=== PATIENT | female | born 1955 ===

== ENCOUNTER 2017-09-05 06:46 | Observation (INO) | payer MEDICAID ==
[2017-08-28 08:46] VITALS: BMI 27.3
[2017-09-05] MEDS ORDERED: ceFAZolin IV 1 gm in Dextrose 1 GM/50 ML BAG IVPB ONE (12:33)
[2017-09-05] MEDS ORDERED: Midazolam 2 MG/2 ML VIAL ONE (12:52)
[2017-09-05] MEDS ORDERED: Propofol 10 mg/ml Inj (20 ML) ONE (12:52)
[2017-09-05] MEDS ORDERED: Succinylcholine Chloride 20 mg/ml Syr (5 ml) IV ONE (13:00)
[2017-09-05] MEDS ORDERED: Rocuronium 10 mg/ml (5 ml) ONE (13:00)
[2017-09-05] MEDS ORDERED: Lactated Ringer's 1,000 ML IV ONE ×2 (13:00→14:25)
[2017-09-05] MEDS ORDERED: Neostigmine Methylsulfate 3mg/3ml Syringe IV ONE (14:47)
[2017-09-05] MEDS: HYDROmorphone 0.5 mg/0.5 ml ISec IVP PRN ×3 (15:13→16:12)
--- NOTE | 2017-09-05 15:14 | PCM.SURG1 ---
Surgeon's Initial Post Op Note - Surgeon's Notes Surgeon: Dr. Jordan Address Change Clerk: PGY4, Be PGY1, Ramon RORDIGUEZ Type of Anesthesia: General Endo Pre-Operative Diagnosis: Breast CA Operative Findings: see operative report Post-Operative Diagnosis: Breast CA Operation Performed: Mastectomy with SLNB Specimen/Specimens Removed: Breast tissue, skin, areola complex, and SLN Estimated Blood Loss: EBL {In ML}: 100 Blood Products Given: N/A Drains Used: Kaiden (19 Fr) Post-Op Condition: Good Date of Surgery/Procedure: 09/05/17 Time of Surgery/Procedure: 01:15
--- NOTE | 2017-09-05 16:07 | NM ---
HISTORY: Initial cancer in 2008 treated with right lumpectomy and radiation. COMPARISON: None TECHNIQUE: For separate injections -totaling - 1.0 mCi of 99m Tc filtered sulfur colloid (total volume of 10 ml) were administered into the right periareolar subdermal locations 12, 3, 6 and 9 o'clock positions. Anterior and oblique projection images of the chest/ axilla were subsequently obtained. FINDINGS: Confirmation of the 4 sites of injection. Right axillary lymph node identification. IMPRESSION: Successful sentinel node procedure with confirmation of right axillary lymph nodes accumulating radionuclide
[2017-09-05] MEDS: (Novolin R) Insulin Human Regular 100 units/ml vial SC SCH ×2 (16:30→21:14)
[2017-09-06 01:50] VITALS: RESP 20
[2017-09-06] MEDS: HYDROmorphone 0.5 mg/0.5 ml ISec IVP PRN ×2 (07:06→23:00)
[2017-09-06 08:09] LABS: BASO % 0.4 % (0.0-2.0); EOS # 0.1 K/uL (0.0-0.7); EOS % 0.9 % (0.0-4.0); HEMATOCRIT 39.5 % (34.0-47.0); LYMPH % 29.7 % (20.0-40.0); MEAN CELL VOLUME 92.9 fL (81.0-99.0); MEAN CORPUSCULAR HEMOGLOBIN 31.3 pg (27.0-31.0); MEAN CORPUSCULAR HGB CONC 33.7 g/dL (33.0-37.0); MONO # 0.8 K/uL (0.0-0.8); MONO % 8.4 % (0.0-10.0); RED CELL DISTRIBUTION WIDTH 12.4 % (11.5-14.5)
[2017-09-06] MEDS: (Novolin R) Insulin Human Regular 100 units/ml vial SC SCH ×4 (08:15→21:18)
[2017-09-06 08:43] LABS: ALB/GLOB RATIO 1.4 (1.0-2.1); ALKALINE PHOSPHATASE 63 U/L (38-126); ALT/SGPT 34 U/L (9-52); AST/SGOT 26 U/L (14-36); BLOOD UREA NITROGEN 22 mg/dL (7-17); CALCIUM 8.5 mg/dl (8.6-10.4); CARBON DIOXIDE 24 mmol/L (22-30); CHLORIDE 98 mmol/L (98-107); GFR AFRICAN-AMERICAN > 60; GLUCOSE,RANDOM 229 mg/dL (65-105); POTASSIUM 4.7 mmol/L (3.6-5.2); SODIUM 133 mmol/L (132-148); TOTAL PROTEIN 6.5 g/dL (6.3-8.3)
[2017-09-06] MEDS ORDERED: Oxycodone/Acetaminophen 5/325 mg Tab PO PRN (09:22)
--- NOTE | 2017-09-07 00:32 | OP ---
PROCEDURE DATE: 09/05/2017 PREOPERATIVE DIAGNOSIS: Recurrent carcinoma of right breast. POSTOPERATIVE DIAGNOSIS: Recurrent carcinoma of right breast. PROCEDURE: Right modified radical mastectomy with sentinel lymph node biopsy. SURGEON: Alirio Jordan MD. CRITICAL CARE RN: Dr Karimi. TYPE OF ANESTHESIA: General. DESCRIPTION OF PROCEDURE: With the patient in the supine position under adequate general anesthesia, the right chest, neck and upper arm were prepped and draped in the usual sterile manner. The patient is status post a lumpectomy 8 years previously with a transverse scar noted above the right areola and an elliptical incision was marked to include the nipple areolar complex and the area of the old scar. The patient had also undergone radionuclide injection for sentinel lymph node identification and despite previous right axillary dissection at the time of her previous surgery, a localized lymph node was identified, which with the use of the Neoprobe was localized to the lateral corner of the skin incision adjacent to the lower lateral edge of the pectoralis major muscle. The upper skin incision was made and the upper skin flap raised up to the chest wall just below the area of the clavicle. The lateral portion of the lower incision was then made and the flap was begun in the lateral portion and retracting the breast tissue medially, a single sentinel lymph node was identified adjacent to the chest wall close to the lower end of the pectoralis. This was dissected out and marked with Hemoclips and removed. It was noted to be a 1.5 cm single lymph node, which was soft in texture and this will be sent separately to pathology. After the sentinel node which had a high Neoprobe count of up to 700 was removed, minimal background counts were identified within the lateral portion of the breast tissue and the lower flap was completed down to the chest wall. The breast tissue was then dissected off the chest wall beginning laterally to preserve the serratus musculature and then continuing medially taking the breast tissue off the pectoralis fascia. There was no evidence of adherence of the breast to the chest wall and no obvious tumor was identified on the surface of the breast tissue. The lateral end of the breast tissue was marked with a suture for orientation and the chest wall was then again examined with the Neoprobe. There was some activity noted deep beneath the pectoralis major muscle, but no lymph node could be identified within this area and it was felt that further dissection medially beneath the pectoralis was not indicated. The operative site was then examined for hemostasis. Small bleeders were cauterized. They were suture ligated with 3-0 Vicryl sutures and the wound was irrigated with sterile water. Closure was performed with cassandra after placement of a 19-Uzbek Kaiden suction drain and a dry sterile dressing was applied followed by a fluffy compression dressing. The patient tolerated the procedure well and transferred to recovery room in stable condition. Estimated blood loss for the procedure was 100 mL. Alirio Jordan MD DEBBIE
[2017-09-07 07:31] LABS: BASO % 0.6 % (0.0-2.0); EOS # 0.2 K/uL (0.0-0.7); EOS % 2.5 % (0.0-4.0); HEMATOCRIT 34.9 % (34.0-47.0); LYMPH # 2.1 K/uL (1.0-4.3); LYMPH % 29.8 % (20.0-40.0); MEAN CELL VOLUME 91.9 fL (81.0-99.0); MEAN CORPUSCULAR HEMOGLOBIN 31.5 pg (27.0-31.0); MEAN CORPUSCULAR HGB CONC 34.3 g/dL (33.0-37.0); MONO # 0.6 K/uL (0.0-0.8); MONO % 8.1 % (0.0-10.0); RED CELL DISTRIBUTION WIDTH 12.1 % (11.5-14.5); WHITE BLOOD COUNT 7.2 K/uL (4.8-10.8)
[2017-09-07 07:52] LABS: BLOOD UREA NITROGEN 19 mg/dL (7-17); CALCIUM 7.8 mg/dl (8.6-10.4); CARBON DIOXIDE 28 mmol/L (22-30); CHLORIDE 103 mmol/L (98-107); GFR AFRICAN-AMERICAN > 60; GLUCOSE,RANDOM 130 mg/dL (65-105); POTASSIUM 4.2 mmol/L (3.6-5.2); SODIUM 140 mmol/L (132-148)
[2017-09-07] MEDS: (Novolin R) Insulin Human Regular 100 units/ml vial SC SCH ×4 (08:44→21:36)
[2017-09-07] MEDS ORDERED: Pneumococcal 23-Valent Vaccine IM ONE (10:00)
[2017-09-07] MEDS ORDERED: POLYETHYLENE GLYCOL 3350 17 GM/Dose PACKET PO SCH (10:00)
[2017-09-07] MEDS: Influenza Vaccine 60 mcg/0.5 mL SYR (4YR UP) IM ONE ×2 (10:23→14:03)
--- NOTE | 2017-09-07 11:18 | CP.PCM.DIS ---
Provider - Provider Date of Admission: 09/05/17 06:46 Attending physician: Alirio Jordan MD Time Spent in preparation of Discharge (in minutes): 45 Diagnosis - Discharge Diagnosis (1) Breast CA Status: Acute (2) S/P mastectomy Status: Acute Hospital Course - Lab Results Lab Results: Most Recent Lab Values WBC 7.2 K/uL (4.8-10.8) 09/07/17 07:06 RBC 3.79 Mil/uL (3.80-5.20) L 09/07/17 07:06 Hgb 12.0 g/dL (11.0-16.0) 09/07/17 07:06 Hct 34.9 % (34.0-47.0) 09/07/17 07:06 MCV 91.9 fL (81.0-99.0) 09/07/17 07:06 MCH 31.5 pg (27.0-31.0) H 09/07/17 07:06 MCHC 34.3 g/dL (33.0-37.0) 09/07/17 07:06 RDW 12.1 % (11.5-14.5) 09/07/17 07:06 Plt Count 249 K/uL (130-400) 09/07/17 07:06 MPV 8.0 fL (7.2-11.7) 09/07/17 07:06 Neut % (Auto) 59.0 % (50.0-75.0) 09/07/17 07:06 Lymph % (Auto) 29.8 % (20.0-40.0) 09/07/17 07:06 [place] % (Auto) 8.1 % (0.0-10.0) 09/07/17 07:06 Eos % (Auto) 2.5 % (0.0-4.0) 09/07/17 07:06 Baso % (Auto) 0.6 % (0.0-2.0) 09/07/17 07:06 Neut # 4.2 K/uL (1.8-7.0) 09/07/17 07:06 Lymph # 2.1 K/uL (1.0-4.3) 09/07/17 07:06 [place] # 0.6 K/uL (0.0-0.8) 09/07/17 07:06 Eos # 0.2 K/uL (0.0-0.7) 09/07/17 07:06 Baso # 0.0 K/uL (0.0-0.2) 09/07/17 07:06 Sodium 140 mmol/L (132-148) 09/07/17 07:06 Potassium 4.2 mmol/L (3.6-5.2) 09/07/17 07:06 Chloride 103 mmol/L (98-107) 09/07/17 07:06 Carbon Dioxide 28 mmol/L (22-30) 09/07/17 07:06 Anion Gap 12 (10-20) 09/07/17 07:06 BUN 19 mg/dL (7-17) H 09/07/17 07:06 Creatinine 0.6 mg/dL (0.7-1.2) L 09/07/17 07:06 Est GFR ( Amer) > 60 09/07/17 07:06 Est GFR (Non-Af Amer) > 60 09/07/17 07:06 POC Glucose (mg/dL) 131 mg/dL (65-110) H 09/07/17 07:45 Random Glucose 130 mg/dL (65-105) H 09/07/17 07:06 Calcium 7.8 mg/dl (8.6-10.4) L 09/07/17 07:06 Total Bilirubin 1.0 mg/dL (0.2-1.3) 09/06/17 07:58 AST 26 U/L (14-36) 09/06/17 07:58 ALT 34 U/L (9-52) 09/06/17 07:58 Alkaline Phosphatase 63 U/L (38-126) 09/06/17 07:58 Total Protein 6.5 g/dL (6.3-8.3) 09/06/17 07:58 Albumin 3.8 g/dL (3.5-5.0) 09/06/17 07:58 Globulin 2.7 gm/dL (2.2-3.9) 09/06/17 07:58 Albumin/Globulin Ratio 1.4 (1.0-2.1) 09/06/17 07:58 - Hospital Course Hospital Course: 62 F with history of breast CA came in for R mastectomy with SLNB. Procedure was performed on 09/05. Patient tolerated the procedure well. Patient was admitted to be observed for pain management and monitor drain output. Patient had decreased drainage over her 2 days here. Patient's pain was well controlled. She is tolerating diet, ambulating without difficulty, and had normal BM after colace/miralax. Patient deemed stable for discharge. She is instructed to follow up as outpatient with Dr. Jordan within 1-2 weeks. Discharge Exam - Head Exam Head Exam: ATRAUMATIC, NORMOCEPHALIC - Eye Exam Eye Exam: EOMI, Normal appearance Pupil Exam: PERRL - ENT Exam ENT Exam: Mucous Membranes Moist - Respiratory Exam Respiratory Exam: NORMAL BREATHING PATTERN - Cardiovascular Exam Cardiovascular Exam: REGULAR RHYTHM - GI/Abdominal Exam GI & Abdominal Exam: Soft. absent: Tenderness - Extremities Exam Extremities exam: normal capillary refill, pedal pulses present - Back Exam Back exam: absent: CVA tenderness (L), CVA tenderness (R) - Neurological Exam Neurological exam: Alert, CN II-XII Intact, Oriented x3 - Psychiatric Exam Psychiatric exam: Normal Affect, Normal Mood - Skin Skin Exam: Dry, Intact, Normal Color, Warm Additional comments: R breast: dressing changed - clean, dry, intact Incision is nicely approximated with healthy looking tissue Discharge Plan - Follow Up Plan Condition: GOOD Disposition: HOME/ ROUTINE Instructions: Breast Cancer in Women (DC), Mastectomy (DC) Referrals: Alirio Jordan MD [Staff Provider] -
[2017-09-07 15:35] VITALS: BP 148/78; PULSE 65; O2SAT 98
[2017-09-07 17:04] VITALS: TEMP 98.7
== END 2017-09-07 22:15 | disposition home or self-care (01) ==
LOC: INTOOBSV 06:46 → C.9S 06:46 → C.3T 19:21
PROVIDERS: ADMIT Specialist; ATTEND Specialist
DX: C50.911 Malignant neoplasm of unspecified site of right female breast (principal)
CPT/HCPCS: 19307; 36415; 78195; 80048; 80053; 82948; 85025; 88307; 97110; 97116; 97162; 97166; 97530; A9541; G0378; G8978; G8979; G8987; G8988; J0690; J1170; J2001; J2250; J2405; J2704; J2710; J2765; J3010; J7120